=== PATIENT | male | born 1995 | race Hispanic/Latino ===

== ENCOUNTER 2020-10-21 15:12 | Emergency (ER) | payer OTHER ==
[~2020-10-21] VITALS: Ht 180.3 cm; Wt 70.3 kg
[2020-10-21] MEDS ORDERED: HYDROCODONE/APAP 5MG-325MG TAB PO NR (16:00)
[2020-10-21] MEDS ORDERED: KETOROLAC TROMETHAMINE 60 MG/2 ML VIAL IM NR (16:00)
== END 2020-10-21 19:10 | disposition home or self-care (01) ==
LOC: ER 18:10
DX: S39.012A Strain of muscle, fascia and tendon of lower back, initial encounter (principal); X50.0XXA Overexertion from strenuous movement or load, initial encounter; Y93.B3 Activity, free weights; Y92.39 Other specified sports and athletic area as the place of occurrence of the external cause
CPT/HCPCS: 72110; 99283; J1885

== ENCOUNTER 2020-12-20 20:49 | Emergency (ER) | payer OTHER ==
[~2020-12-20] VITALS: Ht 180.3 cm; Wt 74.8 kg
[2020-12-20 21:43] LABS: BASOPHILS # (AUTO) 0.1 (0.0-0.1); BASOPHILS % 0.7 % (0.0-1.0); EOSINOPHILS # (AUTO) 0.4 (0.0-0.4); EOSINOPHILS % 4.6 % (0.0-6.0); HEMATOCRIT 42.7 % (38.2-49.6); HEMOGLOBIN 15.2 g/dL (14.0-18.0); LYMPHOCYTES # (AUTO) 2.5 (1.0-3.2); LYMPHOCYTES % 32.5 % (18.0-39.1); MEAN CORPUSCULAR HEMOGLOBIN 30.5 pg (28-32); MEAN CORPUSCULAR HGB CONC 35.6 g/dL (31-35); MEAN CORPUSCULAR VOLUME 85.6 fL (81-99); MONOCYTES # (AUTO) 0.5 (0.2-0.8); MONOCYTES % 6.1 % (4.4-11.3); NEUTROPHILS # (AUTO) 4.2 (2.1-6.9); NEUTROPHILS % 55.4 % (38.7-80.0); PLATELET COUNT 269 x10e3/uL (140-360); RED BLOOD COUNT 4.99 x10e6/uL (4.3-5.7); RED CELL DISTRIBUTION WIDTH 11.8 % (11.7-14.4)
[2020-12-20 21:59] LABS: ANION GAP 14.7 mmol/L (8-16); BLOOD UREA NITROGEN 23 mg/dL (7-26); BUN/CREATININE RATIO 25 (6-25); CALCIUM 9.7 mg/dL (8.4-10.2); CARBON DIOXIDE 28 mmol/L (22-29); CHLORIDE 105 mmol/L (98-107); CREATININE, SERUM 0.92 mg/dL (0.72-1.25); EST GLOMERULAR FILTRATION RATE > 60 ML/MIN (60-); GLUCOSE 89 mg/dL (74-118); POTASSIUM 3.7 mmol/L (3.5-5.1); SODIUM 144 mmol/L (136-145)
[2020-12-20] MEDS ORDERED: SODIUM CHLORIDE 0.9% 50ML 0 ML ONE (22:37)
[2020-12-20] MEDS ORDERED: SODIUM CHLORIDE 0.9% 100 ML ONE (22:38)
[2020-12-20] MEDS ORDERED: IOPAMIDOL 370 MG/ML 200 ML INFUS..BTL INJ ONE (22:38)
== END 2020-12-21 00:15 | disposition home or self-care (01) ==
LOC: ER 21:46
DX: R51.9 Headache, unspecified (principal)
CPT/HCPCS: 36415; 70496; 80048; 85025; 85651; 99283; J7050; Q9967